=== PATIENT | female | born 1960 | race Caucasian/White ===

== ENCOUNTER 2021-04-07 14:19 | Inpatient (IN) ==
[2021-04-07 15:37] LABS: Bacteria,Urine Few per hpf (None-Few); Bilirubin,Urine Negative (Negative); Blood,Urine Moderate (Negative); Clarity,Urine Clear (Clear); Color,Urine Light-Yellow (Yellow); Glucose,Urine (UA) 50 mg/dL (Normal); Ketones,Urine Negative (Negative); Leukocyte Esterase,Urine Moderate (Negative); Nitrite,Urine Negative (Negative); Protein,Urine 70 mg/dL (Neg-Trace); RBC,Urine 50-100 per hpf (0-3); Specific Gravity,Urine 1.019 (1.010-1.025); Squamous Epithelial Cell,Urine Few per hpf (None-Few); Urobilinogen,Urine Normal (Normal); WBC,Urine 30-50 per hpf (0-3)
[2021-04-07 16:09] LABS: Basophils # 0.1 K/mcL (0.0-0.2); Basophils % 0.4 %; Eosinophils # 0.3 K/mcL (0.0-0.6); Eosinophils % 1.8 %; Hematocrit 36.7 % (35.3-44.9); Hemoglobin 11.8 g/dL (11.5-15.4); Immature Granulocytes % 1.7 % (0-4); Lymphocytes # 2.1 K/mcL (0.6-4.6); Lymphocytes % 13.4 %; Mean Corpuscular HGB Conc 32.2 g/dL (31.6-35.5); Mean Corpuscular Hemoglobin 29.4 pg (28.0-33.3); Mean Corpuscular Volume 91.3 fL (83.0-100.0); Monocytes # 0.7 K/mcL (0.0-1.3); Monocytes % 4.6 %; Neutrophils # 12.1 K/mcL (1.6-8.9); Platelet Count 254 K/mcL (140-400); Red Blood Count 4.02 M/mcL (3.82-4.97); Red Cell Distribution Width 13.8 % (11.5-14.5); Segmented Neutrophils % 78.1 %; White Blood Count 15.6 K/mcL (4.3-11.1)
[2021-04-07 16:30] LABS: Albumin 3.2 g/dL (3.5-5.7); Albumin/Globulin Ratio 0.8 (1.1-2.2); Bilirubin,Direct 0.2 mg/dL (0.0-0.2); Bilirubin,Indirect 0.5 mg/dL (0.0-1.0); Bilirubin,Total 0.7 mg/dL (0.3-1.0); Calcium 8.8 mg/dL (8.6-10.3); Potassium 4.1 mEq/L (3.5-5.1); Total Protein 7.2 g/dL (6.4-8.9)
[2021-04-07] MEDS ORDERED: 0.9 % Sodium Chloride 1,000 ML IVC ONE (16:34)
[2021-04-07] MEDS ORDERED: Morphine Sulfate 2 MG/ML SYRINGE IVP ONE (18:44)
[2021-04-07] MEDS ORDERED: Ondansetron 4 MG/2 ML VIAL IVP ONE (18:44)
[2021-04-07] MEDS ORDERED: cefTRIAXone 1,000 MG in Water for inj. (sterile) 10 ML IVP ONE (18:48)
[2021-04-07] MEDS ORDERED: Naloxone 0.4 MG/ML INJ IVP PRN (20:22)
[2021-04-07] MEDS ORDERED: Ondansetron 4 MG/2 ML VIAL IVP PRN (20:22)
[2021-04-07] MEDS ORDERED: *HR* OxyCODONE Immed Rel 5 MG TABLET PO PRN (20:22)
[2021-04-07] MEDS ORDERED: Melatonin 3 MG TABLET PO PRN (20:22)
[2021-04-07] MEDS ORDERED: Acetaminophen 325 MG TABLET PO PRN (20:22)
[2021-04-07] MEDS: Gabapentin 400 MG CAPSULE PO SCH (22:02)
[2021-04-07] MEDS: carvediloL 25 MG TABLET PO SCH (22:02)
[2021-04-07] MEDS: Ringers Solution, Lactated 1,000 ML IVC SCH (22:04)
[2021-04-08] MEDS: *HR* HYDROcodone/Acet 5/325 mg TABLET PO PRN ×2 (01:30→08:32)
[2021-04-08 04:58] LABS: INR 1.3
[2021-04-08 04:59] LABS: Basophils # 0.1 K/mcL (0.0-0.2); Basophils % 0.4 %; Eosinophils # 0.2 K/mcL (0.0-0.6); Eosinophils % 1.5 %; Hematocrit 33.2 % (35.3-44.9); Hemoglobin 10.4 g/dL (11.5-15.4); Immature Granulocytes % 1.4 % (0-4); Lymphocytes # 1.8 K/mcL (0.6-4.6); Lymphocytes % 11.6 %; Mean Corpuscular HGB Conc 31.3 g/dL (31.6-35.5); Mean Corpuscular Hemoglobin 28.8 pg (28.0-33.3); Mean Platelet Volume 9.2 fL (9.4-12.4); Monocytes # 0.7 K/mcL (0.0-1.3); Monocytes % 4.2 %; Neutrophils # 12.8 K/mcL (1.6-8.9); Platelet Count 247 K/mcL (140-400); Red Blood Count 3.61 M/mcL (3.82-4.97); Red Cell Distribution Width 13.8 % (11.5-14.5); Segmented Neutrophils % 80.9 %; White Blood Count 15.8 K/mcL (4.3-11.1)
[2021-04-08 05:04] LABS: Magnesium 1.2 mg/dL (1.6-2.6); Phosphorous 2.7 mg/dL (2.7-4.5); Potassium 3.9 mEq/L (3.5-5.1)
[2021-04-08] MEDS: *HR* Heparin 5,000 UNIT/ML VIAL SQ SCH ×2 (06:11→21:15)
[2021-04-08] MEDS: Ringers Solution, Lactated 1,000 ML IVC SCH (06:12)
[2021-04-08] MEDS ORDERED: Morphine Sulfate 2 MG/ML SYRINGE IVP PRN (06:47)
[2021-04-08] MEDS ORDERED: Ondansetron 4 MG/2 ML VIAL IVP PRN (06:47)
[2021-04-08] MEDS: Gabapentin 400 MG CAPSULE PO SCH ×2 (08:19→21:06)
[2021-04-08] MEDS: carvediloL 25 MG TABLET PO SCH (08:19)
[2021-04-08] MEDS: *HR* Insulin Regular U-500 500 UNIT/ML SUBQ SCH ×3 (08:20→16:23)
[2021-04-08] MEDS ORDERED: cefTRIAXone 1,000 MG in Water for inj. (sterile) 10 ML IVP SCH (09:00)
[2021-04-08] MEDS ORDERED: D5% in Water 1,000 ML IVC PRN (17:42)
[2021-04-08] MEDS ORDERED: Dextrose Gel 15 GM/37.5 ML TUBE PO PRN ×2 (17:42)
[2021-04-08] MEDS ORDERED: *HR* Dextrose 50 % in Water (Vial) 50 ML VIAL IVP PRN (17:42)
[2021-04-08] MEDS ORDERED: Insulin LISPRO 300 UNITS/3 ML VIAL SUBQ SCH ×2 (17:45→18:00)
[2021-04-08] MEDS ORDERED: Insulin DETEMIR 100 UNIT/ML X5UNITS SUBQ SCH (21:00)
[2021-04-09] MEDS: *HR* HYDROcodone/Acet 5/325 mg TABLET PO PRN ×3 (00:04→21:45)
[2021-04-09] MEDS ORDERED: *HR* FentaNYL (PF) 100 MCG/2 ML VIAL ONE (05:45)
[2021-04-09] MEDS ORDERED: *HR* Propofol 200 MG/20 ML VIAL IVP ONE (05:46)
[2021-04-09] MEDS ORDERED: Ondansetron 4 MG/2 ML VIAL ONE (05:46)
[2021-04-09] MEDS ORDERED: Lidocaine -MPF 2% 2 ML VIAL ONE (05:46)
[2021-04-09] MEDS ORDERED: *HR* Rocuronium Bromide 50 MG/5 ML VIAL ONE (05:46)
[2021-04-09] MEDS ORDERED: *HR* Succinylcholine 200 MG/10 ML VIAL IVP ONE (05:46)
[2021-04-09] MEDS ORDERED: Lidocaine HCL 4 ML Topical Solution (Laryng-O-Jet Kit Sterile Pak) TP ONE (05:50)
[2021-04-09] MEDS ORDERED: Isovue-300 50ML VIAL ONE (06:02)
[2021-04-09 06:14] LABS: Hematocrit 32.9 % (35.3-44.9); Hemoglobin 9.9 g/dL (11.5-15.4); Mean Corpuscular HGB Conc 30.1 g/dL (31.6-35.5); Mean Corpuscular Hemoglobin 28.2 pg (28.0-33.3); Mean Corpuscular Volume 93.7 fL (83.0-100.0); Platelet Count 238 K/mcL (140-400); Red Blood Count 3.51 M/mcL (3.82-4.97); Red Cell Distribution Width 13.8 % (11.5-14.5)
[2021-04-09 06:38] LABS: Potassium 3.8 mEq/L (3.5-5.1)
[2021-04-09] MEDS ORDERED: Naloxone 0.4 MG/ML INJ IVP PRN (07:41)
[2021-04-09] MEDS ORDERED: Melatonin 3 MG TABLET PO PRN (07:41)
[2021-04-09] MEDS ORDERED: *HR* OxyCODONE Immed Rel 5 MG TABLET PO PRN (07:41)
[2021-04-09] MEDS ORDERED: D5% in Water 1,000 ML IVC PRN (07:41)
[2021-04-09] MEDS ORDERED: Ondansetron 4 MG/2 ML VIAL IVP PRN (07:41)
[2021-04-09] MEDS ORDERED: Dextrose Gel 15 GM/37.5 ML TUBE PO PRN ×2 (07:41)
[2021-04-09] MEDS ORDERED: Acetaminophen 325 MG TABLET PO PRN (07:41)
[2021-04-09] MEDS ORDERED: *HR* Dextrose 50 % in Water (Vial) 50 ML VIAL IVP PRN (07:41)
[2021-04-09] MEDS: cefTRIAXone 1,000 MG in Water for inj. (sterile) 10 ML IVP SCH (08:35)
[2021-04-09] MEDS: carvediloL 25 MG TABLET PO SCH (08:35)
[2021-04-09] MEDS: Gabapentin 400 MG CAPSULE PO SCH ×2 (08:35→21:45)
[2021-04-09] MEDS: Insulin LISPRO 300 UNITS/3 ML VIAL SUBQ SCH ×2 (11:53→16:42)
[2021-04-09] MEDS: *HR* Heparin 5,000 UNIT/ML VIAL SQ SCH ×2 (16:41→21:46)
[2021-04-09] MEDS ORDERED: Insulin DETEMIR 100 UNIT/ML X5UNITS SUBQ SCH (21:00)
[2021-04-10 07:52] VITALS: BP 165/77; PULSE 80; TEMP 98; O2SAT 94
[2021-04-10] MEDS: cefTRIAXone 1,000 MG in Water for inj. (sterile) 10 ML IVP SCH (07:57)
[2021-04-10] MEDS: Gabapentin 400 MG CAPSULE PO SCH (07:58)
[2021-04-10] MEDS: *HR* Heparin 5,000 UNIT/ML VIAL SQ SCH (07:58)
[2021-04-10] MEDS: Insulin LISPRO 300 UNITS/3 ML VIAL SUBQ SCH ×2 (07:59→11:58)
[2021-04-10] MEDS: carvediloL 25 MG TABLET PO SCH (07:59)
[2021-04-10] MEDS: *HR* HYDROcodone/Acet 5/325 mg TABLET PO PRN (10:07)
== END 2021-04-10 14:01 | disposition home or self-care (01) | DRG 463 ==
LOC: 3ANU 14:19 → EMEROOARM 14:19 → SUATTDRO 19:20 → 3ANU 20:07
PROVIDERS: ADMIT Internal Medicine; ATTEND Internal Medicine

== ENCOUNTER 2021-06-06 15:35 | Inpatient (IN) ==
[2021-06-06] MEDS ORDERED: 0.9 % Sodium Chloride 1,000 ML IVC ONE (17:11)
[2021-06-06] MEDS ORDERED: Ondansetron 4 MG/2 ML VIAL IVP ONE (17:11)
[2021-06-06 17:25] LABS: Bacteria,Urine Few per hpf (None-Few); Bilirubin,Urine Negative (Negative); Blood,Urine Large (Negative); Clarity,Urine Ex.Turbid (Clear); Color,Urine Dark-Yellow (Yellow); Glucose,Urine (UA) 70 mg/dL (Normal); Ketones,Urine Negative (Negative); Leukocyte Esterase,Urine Large (Negative); Mucus,Urine Few per lpf (None-Few); Nitrite,Urine Negative (Negative); Protein,Urine >=300 mg/dL (Neg-Trace); RBC,Urine TNTC per hpf (0-3); Specific Gravity,Urine 1.017 (1.010-1.025); Urobilinogen,Urine Normal (Normal); WBC,Urine TNTC per hpf (0-3)
[2021-06-06 17:28] LABS: Basophils # 0.1 K/mcL (0.0-0.2); Basophils % 0.4 %; Eosinophils # 0.2 K/mcL (0.0-0.6); Eosinophils % 1.3 %; Hemoglobin 12.7 g/dL (11.5-15.4); Immature Granulocytes % 0.6 % (0-4); Lymphocytes # 3.4 K/mcL (0.6-4.6); Lymphocytes % 23.6 %; Mean Corpuscular Hemoglobin 28.5 pg (28.0-33.3); Mean Corpuscular Volume 92.1 fL (83.0-100.0); Monocytes # 1.2 K/mcL (0.0-1.3); Monocytes % 8.6 %; Neutrophils # 9.3 K/mcL (1.6-8.9); Platelet Count 308 K/mcL (140-400); Red Blood Count 4.45 M/mcL (3.82-4.97); Red Cell Distribution Width 15.5 % (11.5-14.5); Segmented Neutrophils % 65.5 %; White Blood Count 14.2 K/mcL (4.3-11.1)
[2021-06-06 17:44] LABS: Bilirubin,Direct 0.2 mg/dL (0.0-0.2); Bilirubin,Indirect 1.1 mg/dL (0.0-1.0); Bilirubin,Total 1.3 mg/dL (0.3-1.0); Calcium 9.8 mg/dL (8.6-10.3); Globulin 4.1 g/dL (2.4-3.5); Potassium 3.6 mEq/L (3.5-5.1); Total Protein 8.1 g/dL (6.4-8.9)
[2021-06-06] MEDS ORDERED: cefTRIAXone 2,000 MG in Water for inj. (sterile) 10 ML IVP ONE (18:00)
[2021-06-06] MEDS ORDERED: 0.9 % Sodium Chloride 500 ML IVC ONE (18:06)
[2021-06-06] MEDS ORDERED: 0.9 % Sodium Chloride 1,000 ML IVC SCH (20:30)
[2021-06-06] MEDS ORDERED: Naloxone 0.4 MG/ML INJ IVP PRN (21:34)
[2021-06-06] MEDS ORDERED: Ondansetron ODT 4 MG TAB.RAPDIS SL PRN (21:34)
[2021-06-06] MEDS ORDERED: Dextrose Gel 15 GM/37.5 ML TUBE PO PRN ×2 (22:04)
[2021-06-06] MEDS ORDERED: D5% in Water 1,000 ML IVC PRN (22:04)
[2021-06-06] MEDS ORDERED: *HR* Dextrose 50 % in Water (Vial) 50 ML VIAL IVP PRN (22:04)
[2021-06-07] MEDS: Ringers Solution, Lactated 1,000 ML IVC SCH ×2 (01:06→08:07)
[2021-06-07] MEDS: Insulin LISPRO 300 UNITS/3 ML VIAL SUBQ SCH ×4 (02:34→16:41)
[2021-06-07 04:38] LABS: Basophils % 0.4 %; Eosinophils # 0.2 K/mcL (0.0-0.6); Eosinophils % 3.3 %; Hematocrit 31.2 % (35.3-44.9); Immature Granulocytes % 0.3 % (0-4); Lymphocytes # 1.8 K/mcL (0.6-4.6); Lymphocytes % 25.1 %; Mean Corpuscular HGB Conc 32.1 g/dL (31.6-35.5); Mean Corpuscular Hemoglobin 28.9 pg (28.0-33.3); Mean Corpuscular Volume 90.2 fL (83.0-100.0); Mean Platelet Volume 9.8 fL (9.4-12.4); Monocytes # 0.7 K/mcL (0.0-1.3); Neutrophils # 4.5 K/mcL (1.6-8.9); Platelet Count 180 K/mcL (140-400); Red Blood Count 3.46 M/mcL (3.82-4.97); Red Cell Distribution Width 15.4 % (11.5-14.5); Segmented Neutrophils % 60.9 %; White Blood Count 7.3 K/mcL (4.3-11.1)
[2021-06-07 04:57] LABS: Calcium 8.5 mg/dL (8.6-10.3); Potassium 3.5 mEq/L (3.5-5.1)
[2021-06-07] MEDS: cefTRIAXone 1,000 MG in Water for inj. (sterile) 10 ML IVP SCH (08:07)
[2021-06-07] MEDS: Gabapentin 400 MG CAPSULE PO SCH (21:02)
[2021-06-07] MEDS ORDERED: Insulin LISPRO 300 UNITS/3 ML VIAL SUBQ SCH (21:15)
[2021-06-08 07:41] LABS: Basophils # 0.1 K/mcL (0.0-0.2); Basophils % 0.7 %; Eosinophils # 0.4 K/mcL (0.0-0.6); Eosinophils % 5.1 %; Hematocrit 32.9 % (35.3-44.9); Hemoglobin 10.3 g/dL (11.5-15.4); Immature Granulocytes % 0.4 % (0-4); Lymphocytes # 2.3 K/mcL (0.6-4.6); Lymphocytes % 31.9 %; Mean Corpuscular HGB Conc 31.3 g/dL (31.6-35.5); Mean Corpuscular Hemoglobin 28.5 pg (28.0-33.3); Mean Corpuscular Volume 91.1 fL (83.0-100.0); Mean Platelet Volume 10.3 fL (9.4-12.4); Monocytes # 0.6 K/mcL (0.0-1.3); Monocytes % 7.8 %; Neutrophils # 3.9 K/mcL (1.6-8.9); Platelet Count 210 K/mcL (140-400); Red Blood Count 3.61 M/mcL (3.82-4.97); Red Cell Distribution Width 15.1 % (11.5-14.5); Segmented Neutrophils % 54.1 %; White Blood Count 7.2 K/mcL (4.3-11.1)
[2021-06-08] MEDS: Gabapentin 400 MG CAPSULE PO SCH (07:54)
[2021-06-08] MEDS: cefTRIAXone 1,000 MG in Water for inj. (sterile) 10 ML IVP SCH (07:54)
[2021-06-08] MEDS: Insulin LISPRO 300 UNITS/3 ML VIAL SUBQ SCH ×2 (07:55→12:00)
[2021-06-08 08:02] LABS: Potassium 3.7 mEq/L (3.5-5.1)
[2021-06-08 11:26] VITALS: BP 109/71; PULSE 83; TEMP 97.8; O2SAT 96
== END 2021-06-08 13:06 | disposition home or self-care (01) | DRG 720 ==
LOC: EMEROOARM 15:35 → 2ANU 15:35 → SUATTDRO 23:18 → OBSVTOIN 23:18 → 2ANU 06-07 00:39
PROVIDERS: ADMIT Student in an Organized Health Care Education/Training Program; ATTEND Hospitalist

== ENCOUNTER 2021-12-12 22:55 | Observation (INO) ==
[2021-12-13] MEDS ORDERED: Melatonin 3 MG TABLET PO PRN ×2 (02:12→11:18)
[2021-12-13] MEDS ORDERED: Naloxone 0.4 MG/ML INJ IVP PRN ×2 (02:12→11:18)
[2021-12-13] MEDS ORDERED: Acetaminophen 325 MG TABLET PO PRN (02:12)
[2021-12-13] MEDS ORDERED: 0.9 % Sodium Chloride 1,000 ML IVC SCH (02:15)
[2021-12-13] MEDS ORDERED: D5% in Water 1,000 ML IVC PRN ×3 (02:18→16:16)
[2021-12-13] MEDS ORDERED: *HR* Dextrose 50 % in Water (Syg) 50 ML SYRINGE IVP PRN (02:18)
[2021-12-13] MEDS ORDERED: Dextrose 4 GM Chewable Tablets PO PRN ×4 (02:18→11:18)
[2021-12-13] MEDS ORDERED: Saliva Stimulant 44.3ml BOTTLE PO PRN ×2 (02:21→11:18)
[2021-12-13] MEDS ORDERED: *HR* OxyCODONE Immed Rel 5 MG TABLET PO PRN ×2 (02:51→11:18)
[2021-12-13] MEDS ORDERED: Morphine Sulfate 2 MG/ML SYRINGE IVP ONE (02:55)
[2021-12-13 03:11] LABS: Hematocrit 35.8 % (35.3-44.9); Hemoglobin 11.6 g/dL (11.5-15.4); Mean Corpuscular HGB Conc 32.4 g/dL (31.6-35.5); Mean Corpuscular Volume 89.5 fL (83.0-100.0); Mean Platelet Volume 9.9 fL (9.4-12.4); Platelet Count 226 K/mcL (140-400); Red Cell Distribution Width 14.6 % (11.5-14.5); White Blood Count 8.8 K/mcL (4.3-11.1)
[2021-12-13 03:21] LABS: INR 1.1; Prothrombin Time 12.7 Seconds (9.4-12.1)
[2021-12-13 03:24] LABS: Activated Partial Thrombo Time 27.8 Seconds (26.0-36.0)
[2021-12-13 03:33] LABS: Calcium 8.3 mg/dL (8.6-10.3); Magnesium 2.1 mg/dL (1.6-2.6); Potassium 3.3 mEq/L (3.5-5.1)
[2021-12-13] MEDS ORDERED: *HR* FentaNYL (PF) 100 MCG/2 ML VIAL IVP PRN (08:47)
[2021-12-13] MEDS ORDERED: Lactobacillus 1 EACH CAP.SPRINK PO SCH (09:00)
[2021-12-13] MEDS ORDERED: cefTRIAXone 2,000 MG in 0.9 % Sodium Chloride Mini Bag 100 ML IVPB SCH (09:00)
[2021-12-13] MEDS ORDERED: Multivit/Ca/Min/Fe/FA 1 TAB TABLET PO SCH (09:00)
[2021-12-13] MEDS ORDERED: Chlorhexidine Rinse 15 ML MOUTHWASH MM SCH (09:00)
[2021-12-13] MEDS ORDERED: *HR* FentaNYL (PF) 100 MCG/2 ML VIAL ONE (09:41)
[2021-12-13] MEDS ORDERED: *HR* Propofol 200 MG/20 ML VIAL IVP ONE (09:41)
[2021-12-13] MEDS: Insulin LISPRO 300 UNITS/3 ML VIAL SUBQ SCH (17:04)
[2021-12-13] MEDS: *HR* Heparin 5,000 UNIT/ML VIAL SQ SCH (17:04)
[2021-12-13] MEDS ORDERED: Gabapentin 400 MG CAPSULE PO PRN (17:19)
[2021-12-13] MEDS ORDERED: *HR* Heparin 5,000 UNIT/ML VIAL SQ SCH (18:00)
[2021-12-13] MEDS: Chlorhexidine Rinse 15 ML MOUTHWASH MM SCH (19:46)
[2021-12-13] MEDS: Lactobacillus 1 EACH CAP.SPRINK PO SCH (19:46)
[2021-12-13] MEDS ORDERED: Insulin LISPRO 300 UNITS/3 ML VIAL SUBQ SCH (21:00)
[2021-12-13] MEDS: Acetaminophen 325 MG TABLET PO PRN (23:15)
[2021-12-14] MEDS: *HR* Heparin 5,000 UNIT/ML VIAL SQ SCH (04:38)
[2021-12-14 08:00] LABS: Basophils % 0.2 %; Eosinophils % 0.5 %; Hematocrit 34.3 % (35.3-44.9); Immature Granulocytes % 1.4 % (0-4); Lymphocytes # 1.3 K/mcL (0.6-4.6); Lymphocytes % 15.3 %; Mean Corpuscular HGB Conc 32.1 g/dL (31.6-35.5); Mean Corpuscular Hemoglobin 28.5 pg (28.0-33.3); Mean Corpuscular Volume 88.9 fL (83.0-100.0); Mean Platelet Volume 9.4 fL (9.4-12.4); Monocytes # 0.5 K/mcL (0.0-1.3); Monocytes % 5.5 %; Neutrophils # 6.4 K/mcL (1.6-8.9); Platelet Count 207 K/mcL (140-400); Red Blood Count 3.86 M/mcL (3.82-4.97); Red Cell Distribution Width 14.6 % (11.5-14.5); Segmented Neutrophils % 77.1 %; White Blood Count 8.3 K/mcL (4.3-11.1)
[2021-12-14] MEDS ORDERED: *HR* Insulin Regular U-500 500 UNIT/ML SUBQ SCH ×2 (08:00→09:15)
[2021-12-14 08:48] LABS: Calcium 8.5 mg/dL (8.6-10.3); Potassium 4.6 mEq/L (3.5-5.1)
[2021-12-14] MEDS ORDERED: cefTRIAXone 2,000 MG in 0.9 % Sodium Chloride Mini Bag 100 ML IVPB SCH (09:00)
[2021-12-14] MEDS ORDERED: Multivit/Ca/Min/Fe/FA 1 TAB TABLET PO SCH (09:00)
[2021-12-14] MEDS: Lactobacillus 1 EACH CAP.SPRINK PO SCH (09:21)
[2021-12-14] MEDS: Chlorhexidine Rinse 15 ML MOUTHWASH MM SCH (09:21)
[2021-12-14] MEDS: Insulin LISPRO 300 UNITS/3 ML VIAL SUBQ SCH (09:22)
[2021-12-14] MEDS: Acetaminophen 325 MG TABLET PO PRN (10:20)
[2021-12-14 11:48] VITALS: BP 122/90; PULSE 60; TEMP 98; O2SAT 97
== END 2021-12-14 12:30 | disposition home or self-care (01) ==
LOC: 3ANU
PROVIDERS: ADMIT Internal Medicine; ATTEND Internal Medicine

== ENCOUNTER 2022-03-28 04:27 | Inpatient (IN) ==
[2022-03-28] MEDS ORDERED: Ondansetron 4 MG/2 ML VIAL IVP PRN (08:22)
[2022-03-28] MEDS ORDERED: Naloxone 0.4 MG/ML INJ IVP PRN (08:22)
[2022-03-28] MEDS ORDERED: Acetaminophen 325 MG TABLET PO PRN (08:22)
[2022-03-28 09:07] LABS: Basophils % 0.4 %; Eosinophils # 0.1 K/mcL (0.0-0.6); Eosinophils % 1.2 %; Hematocrit 34.1 % (35.3-44.9); Hemoglobin 10.6 g/dL (11.5-15.4); Immature Granulocytes % 0.4 % (0-4); Lymphocytes # 1.4 K/mcL (0.6-4.6); Lymphocytes % 14.2 %; Mean Corpuscular HGB Conc 31.1 g/dL (31.6-35.5); Mean Corpuscular Hemoglobin 29.1 pg (28.0-33.3); Mean Corpuscular Volume 93.7 fL (83.0-100.0); Mean Platelet Volume 9.4 fL (9.4-12.4); Monocytes # 0.6 K/mcL (0.0-1.3); Monocytes % 6.5 %; Neutrophils # 7.6 K/mcL (1.6-8.9); Platelet Count 356 K/mcL (140-400); Red Blood Count 3.64 M/mcL (3.82-4.97); Red Cell Distribution Width 14.6 % (11.5-14.5); Segmented Neutrophils % 77.3 %; White Blood Count 9.8 K/mcL (4.3-11.1)
[2022-03-28 09:14] LABS: INR 1.4; Prothrombin Time 15.7 Seconds (9.4-12.1)
[2022-03-28 09:17] LABS: Activated Partial Thrombo Time 32.8 Seconds (26.0-36.0)
[2022-03-28 09:25] LABS: Albumin 3.1 g/dL (3.5-5.7); Albumin/Globulin Ratio 0.7 (1.1-2.2); Bilirubin,Total 0.5 mg/dL (0.3-1.0); Calcium 8.8 mg/dL (8.6-10.3); Chol/HDL Ratio 4.8 (0-4.9); Globulin 4.7 g/dL (2.4-3.5); Potassium 4.6 mEq/L (3.5-5.1); Total Protein 7.8 g/dL (6.4-8.9)
[2022-03-28] MEDS ORDERED: Water for inj. (sterile) 0 ML ONE (09:49)
[2022-03-28] MEDS: 0.9 % Sodium Chloride 1,000 ML IVC SCH ×2 (09:59→20:15)
[2022-03-28] MEDS: cefTRIAXone 1,000 MG in Water for inj. (sterile) 10 ML IVP SCH (09:59)
[2022-03-28] MEDS: *HR* OxyCODONE Immed Rel 5 MG TABLET PO PRN (11:27)
[2022-03-28] MEDS ORDERED: *HR* Dextrose 50 % in Water (Syg) 50 ML SYRINGE IVP PRN (13:04)
[2022-03-28] MEDS ORDERED: Dextrose Gel 15 GM/37.5 ML TUBE PO PRN ×2 (13:04)
[2022-03-28] MEDS ORDERED: D5% in Water 1,000 ML IVC PRN (13:04)
[2022-03-28] MEDS: Insulin LISPRO 300 UNITS/3 ML VIAL SUBQ SCH ×2 (16:53→20:09)
[2022-03-28] MEDS ORDERED: Warfarin perPT PO PRN (18:00)
[2022-03-28] MEDS ORDERED: *HR* Warfarin 0.5 MG TABLET PO ONE (18:10)
[2022-03-28] MEDS: *HR* Heparin 5,000 UNIT/ML VIAL SQ SCH (22:49)
[2022-03-29] MEDS: *HR* Heparin 5,000 UNIT/ML VIAL SQ SCH ×4 (01:04→21:57)
[2022-03-29 03:34] LABS: INR 1.4; Prothrombin Time 15.2 Seconds (9.4-12.1)
[2022-03-29] MEDS: Insulin LISPRO 300 UNITS/3 ML VIAL SUBQ SCH ×4 (08:23→21:57)
[2022-03-29 08:26] LABS: Basophils % 0.4 %; Eosinophils # 0.1 K/mcL (0.0-0.6); Eosinophils % 1.6 %; Hematocrit 31.1 % (35.3-44.9); Hemoglobin 9.6 g/dL (11.5-15.4); Immature Granulocytes % 0.4 % (0-4); Lymphocytes # 1.2 K/mcL (0.6-4.6); Mean Corpuscular HGB Conc 30.9 g/dL (31.6-35.5); Mean Corpuscular Hemoglobin 29.2 pg (28.0-33.3); Mean Corpuscular Volume 94.5 fL (83.0-100.0); Mean Platelet Volume 9.4 fL (9.4-12.4); Monocytes # 0.7 K/mcL (0.0-1.3); Monocytes % 8.9 %; Neutrophils # 5.9 K/mcL (1.6-8.9); Platelet Count 295 K/mcL (140-400); Red Blood Count 3.29 M/mcL (3.82-4.97); Red Cell Distribution Width 14.6 % (11.5-14.5); Segmented Neutrophils % 73.7 %; White Blood Count 7.9 K/mcL (4.3-11.1)
[2022-03-29] MEDS: cefTRIAXone 1,000 MG in Water for inj. (sterile) 10 ML IVP SCH (08:27)
[2022-03-29] MEDS: *HR* OxyCODONE Immed Rel 5 MG TABLET PO PRN ×3 (08:37→17:47)
[2022-03-29 08:49] LABS: Calcium 8.6 mg/dL (8.6-10.3); Potassium 4.5 mEq/L (3.5-5.1)
[2022-03-29] MEDS ORDERED: *HR* HYDROmorphone PF 0.5 MG/0.5 ML SYRINGE IVP PRN (08:52)
[2022-03-29] MEDS ORDERED: *HR* FentaNYL (PF) 100 MCG/2 ML VIAL IVP PRN (08:52)
[2022-03-29] MEDS ORDERED: *HR* Propofol 200 MG/20 ML VIAL IVP ONE (10:31)
[2022-03-29] MEDS ORDERED: *HR* FentaNYL (PF) 100 MCG/2 ML VIAL ONE (10:31)
[2022-03-29] MEDS ORDERED: *HR* Midazolam HCl 2 MG/2 ML VIAL ONE (10:31)
[2022-03-29] MEDS ORDERED: Iopamidol - 300 50 ML VIAL ONE (11:40)
[2022-03-29] MEDS ORDERED: Ondansetron 4 MG/2 ML VIAL ONE (12:13)
[2022-03-29] MEDS ORDERED: Morphine Sulfate 2 MG/ML SYRINGE IVP ONE (15:13)
[2022-03-29] MEDS ORDERED: hydrOXYzine pamoate 25 MG CAPSULE PO PRN (15:37)
[2022-03-29] MEDS ORDERED: Ondansetron ODT 4 MG TAB.RAPDIS PO PRN (15:38)
[2022-03-29] MEDS: Gabapentin 300 MG CAPSULE PO SCH ×2 (15:43→21:57)
[2022-03-29] MEDS: carvediloL 25 MG TABLET PO SCH (16:05)
[2022-03-29] MEDS ORDERED: *HR* Warfarin 0.5 MG TABLET PO ONE (18:00)
[2022-03-30 03:08] LABS: Hematocrit 31.3 % (35.3-44.9); Hemoglobin 9.7 g/dL (11.5-15.4); Mean Corpuscular Hemoglobin 28.9 pg (28.0-33.3); Mean Corpuscular Volume 93.2 fL (83.0-100.0); Mean Platelet Volume 9.4 fL (9.4-12.4); Platelet Count 312 K/mcL (140-400); Red Blood Count 3.36 M/mcL (3.82-4.97); Red Cell Distribution Width 14.5 % (11.5-14.5); White Blood Count 8.7 K/mcL (4.3-11.1)
[2022-03-30 03:26] LABS: Calcium 8.7 mg/dL (8.6-10.3); Potassium 4.3 mEq/L (3.5-5.1)
[2022-03-30 03:29] LABS: Estimated Average Glucose 114 mg/dl; Hemoglobin A1C 5.6 %
[2022-03-30 03:30] LABS: INR 1.3; Prothrombin Time 14.3 Seconds (9.4-12.1)
[2022-03-30] MEDS: *HR* Heparin 5,000 UNIT/ML VIAL SQ SCH (05:02)
[2022-03-30] MEDS ORDERED: Warfarin perPT PO PRN (08:00)
[2022-03-30] MEDS ORDERED: Dextrose Gel 15 GM/37.5 ML TUBE PO PRN ×2 (08:00)
[2022-03-30] MEDS ORDERED: *HR* Dextrose 50 % in Water (Syg) 50 ML SYRINGE IVP PRN (08:00)
[2022-03-30] MEDS ORDERED: Acetaminophen 325 MG TABLET PO PRN (08:00)
[2022-03-30] MEDS ORDERED: Naloxone 0.4 MG/ML INJ IVP PRN (08:00)
[2022-03-30] MEDS ORDERED: D5% in Water 1,000 ML IVC PRN (08:00)
[2022-03-30] MEDS ORDERED: *HR* Warfarin 1 MG TABLET PO SCH (08:00)
[2022-03-30] MEDS: cefTRIAXone 1,000 MG in 0.9 % Sodium Chloride 10 ML IVP SCH (08:56)
[2022-03-30] MEDS: carvediloL 25 MG TABLET PO SCH ×2 (08:57→15:17)
[2022-03-30] MEDS: Gabapentin 300 MG CAPSULE PO SCH ×3 (08:57→21:13)
[2022-03-30] MEDS: Insulin LISPRO 300 UNITS/3 ML VIAL SUBQ SCH ×3 (11:54→21:02)
[2022-03-30] MEDS ORDERED: *HR* Heparin 5,000 UNIT/ML VIAL SQ SCH (14:00)
[2022-03-30] MEDS: *HR* OxyCODONE Immed Rel 5 MG TABLET PO PRN (16:48)
[2022-03-30] MEDS ORDERED: *HR* Warfarin 0.5 MG TABLET PO ONE (18:00)
[2022-03-31 05:33] LABS: Hemoglobin 9.2 g/dL (11.5-15.4); Mean Corpuscular HGB Conc 30.7 g/dL (31.6-35.5); Mean Corpuscular Hemoglobin 29.1 pg (28.0-33.3); Mean Corpuscular Volume 94.9 fL (83.0-100.0); Mean Platelet Volume 9.5 fL (9.4-12.4); Platelet Count 288 K/mcL (140-400); Red Blood Count 3.16 M/mcL (3.82-4.97); Red Cell Distribution Width 14.6 % (11.5-14.5); White Blood Count 7.6 K/mcL (4.3-11.1)
[2022-03-31 05:47] LABS: INR 1.4; Prothrombin Time 15.1 Seconds (9.4-12.1)
[2022-03-31 05:53] LABS: Calcium 8.4 mg/dL (8.6-10.3)
[2022-03-31] MEDS: Insulin LISPRO 300 UNITS/3 ML VIAL SUBQ SCH ×4 (09:49→21:12)
[2022-03-31] MEDS: Gabapentin 300 MG CAPSULE PO SCH ×3 (09:50→21:19)
[2022-03-31] MEDS: cefTRIAXone 1,000 MG in 0.9 % Sodium Chloride 10 ML IVP SCH (09:50)
[2022-03-31] MEDS: carvediloL 25 MG TABLET PO SCH ×2 (09:54→17:12)
[2022-03-31] MEDS: *HR* OxyCODONE Immed Rel 5 MG TABLET PO PRN (17:29)
[2022-03-31] MEDS ORDERED: *HR* Warfarin 0.5 MG TABLET PO ONE (18:00)
[2022-04-01 03:54] LABS: Hematocrit 31.1 % (35.3-44.9); Hemoglobin 9.5 g/dL (11.5-15.4); Mean Corpuscular HGB Conc 30.5 g/dL (31.6-35.5); Mean Corpuscular Hemoglobin 29.1 pg (28.0-33.3); Mean Corpuscular Volume 95.1 fL (83.0-100.0); Mean Platelet Volume 9.6 fL (9.4-12.4); Platelet Count 288 K/mcL (140-400); Red Blood Count 3.27 M/mcL (3.82-4.97); Red Cell Distribution Width 14.6 % (11.5-14.5); White Blood Count 7.6 K/mcL (4.3-11.1)
[2022-04-01 03:57] LABS: INR 1.5; Prothrombin Time 16.2 Seconds (9.4-12.1)
[2022-04-01] MEDS: Insulin LISPRO 300 UNITS/3 ML VIAL SUBQ SCH ×4 (09:03→21:37)
[2022-04-01] MEDS: cefTRIAXone 1,000 MG in 0.9 % Sodium Chloride 10 ML IVP SCH (09:14)
[2022-04-01] MEDS: *HR* Enoxaparin 80 MG/0.8 ML SYRINGE SQ SCH ×2 (09:14→22:14)
[2022-04-01] MEDS: Gabapentin 300 MG CAPSULE PO SCH ×3 (09:14→22:15)
[2022-04-01] MEDS: carvediloL 25 MG TABLET PO SCH ×2 (09:14→17:40)
[2022-04-01 10:53] LABS: Calcium 8.5 mg/dL (8.6-10.3); Potassium 3.7 mEq/L (3.5-5.1)
[2022-04-01] MEDS: Ondansetron 4 MG/2 ML VIAL IVP PRN (12:35)
[2022-04-01 13:34] LABS: Bacteria,Urine Few per hpf (None-Few); Bilirubin,Urine Negative (Negative); Blood,Urine Large (Negative); Budding Yeast,Urine Moderate per hpf (None Seen); Clarity,Urine Ex.Turbid (Clear); Color,Urine Yellow (Yellow); Glucose,Urine (UA) Normal (Normal); Ketones,Urine Trace mg/dL (Negative); Leukocyte Esterase,Urine Large (Negative); Mucus,Urine Few per lpf (None-Few); Nitrite,Urine Negative (Negative); Protein,Urine >=300 mg/dL (Neg-Trace); RBC,Urine TNTC per hpf (0-3); Specific Gravity,Urine 1.015 (1.010-1.025); Squamous Epithelial Cell,Urine Moderate per hpf (None-Few); Urobilinogen,Urine Normal (Normal); WBC,Urine TNTC per hpf (0-3)
[2022-04-01] MEDS: *HR* OxyCODONE Immed Rel 5 MG TABLET PO PRN (17:40)
[2022-04-01] MEDS ORDERED: *HR* Warfarin 0.5 MG TABLET PO ONE (18:00)
[2022-04-01] MEDS ORDERED: *HR* Warfarin 1 MG TABLET PO ONE (18:00)
[2022-04-02 03:21] LABS: INR 1.6; Prothrombin Time 18.1 Seconds (9.4-12.1)
[2022-04-02] MEDS: Insulin LISPRO 300 UNITS/3 ML VIAL SUBQ SCH ×4 (08:28→21:06)
[2022-04-02] MEDS: cefTRIAXone 1,000 MG in 0.9 % Sodium Chloride 10 ML IVP SCH (08:53)
[2022-04-02] MEDS: *HR* Enoxaparin 80 MG/0.8 ML SYRINGE SQ SCH ×2 (08:54→20:51)
[2022-04-02] MEDS: carvediloL 25 MG TABLET PO SCH ×2 (08:54→16:53)
[2022-04-02] MEDS: Gabapentin 300 MG CAPSULE PO SCH ×3 (08:54→20:51)
[2022-04-02 09:58] LABS: Hematocrit 32.4 % (35.3-44.9); Hemoglobin 9.9 g/dL (11.5-15.4); Mean Corpuscular HGB Conc 30.6 g/dL (31.6-35.5); Mean Corpuscular Hemoglobin 28.9 pg (28.0-33.3); Mean Corpuscular Volume 94.5 fL (83.0-100.0); Mean Platelet Volume 9.4 fL (9.4-12.4); Platelet Count 275 K/mcL (140-400); Red Blood Count 3.43 M/mcL (3.82-4.97); Red Cell Distribution Width 14.3 % (11.5-14.5); White Blood Count 8.9 K/mcL (4.3-11.1)
[2022-04-02 10:35] LABS: Calcium 8.4 mg/dL (8.6-10.3); Potassium 3.4 mEq/L (3.5-5.1)
[2022-04-02] MEDS ORDERED: Fluconazole 200 MG/100 ML 200 MG/100 ML BAG IVPB ONE (11:59)
[2022-04-02] MEDS: *HR* OxyCODONE Immed Rel 5 MG TABLET PO PRN (12:40)
[2022-04-02] MEDS ORDERED: *HR* Warfarin 1 MG TABLET PO ONE (18:00)
[2022-04-02] MEDS ORDERED: *HR* Warfarin 0.5 MG TABLET PO ONE (18:00)
[2022-04-03] MEDS: *HR* OxyCODONE Immed Rel 5 MG TABLET PO PRN ×3 (04:12→21:22)
[2022-04-03 06:21] LABS: Hemoglobin 10.2 g/dL (11.5-15.4); Mean Corpuscular Hemoglobin 28.7 pg (28.0-33.3); Mean Corpuscular Volume 95.5 fL (83.0-100.0); Mean Platelet Volume 9.6 fL (9.4-12.4); Platelet Count 245 K/mcL (140-400); Red Blood Count 3.56 M/mcL (3.82-4.97); Red Cell Distribution Width 14.5 % (11.5-14.5); White Blood Count 8.8 K/mcL (4.3-11.1)
[2022-04-03 06:22] LABS: INR 1.6; Prothrombin Time 17.9 Seconds (9.4-12.1)
[2022-04-03 06:43] LABS: Calcium 8.2 mg/dL (8.6-10.3); Potassium 3.3 mEq/L (3.5-5.1)
[2022-04-03] MEDS: Insulin LISPRO 300 UNITS/3 ML VIAL SUBQ SCH ×4 (08:10→21:12)
[2022-04-03] MEDS: *HR* Enoxaparin 80 MG/0.8 ML SYRINGE SQ SCH ×2 (09:32→21:17)
[2022-04-03] MEDS: cefTRIAXone 1,000 MG in 0.9 % Sodium Chloride 10 ML IVP SCH (09:32)
[2022-04-03] MEDS: carvediloL 25 MG TABLET PO SCH ×2 (09:33→17:22)
[2022-04-03] MEDS: Gabapentin 300 MG CAPSULE PO SCH ×3 (09:33→21:17)
[2022-04-03] MEDS ORDERED: Fluconazole 100 MG TABLET PO SCH ×2 (10:15→11:15)
[2022-04-03] MEDS ORDERED: Fluconazole 40 MG/ML MLS PO SCH (11:00)
[2022-04-03] MEDS: Cefepime HCl 1,000 MG in 0.9 % Sodium Chloride 10 ML IVPB SCH (17:22)
[2022-04-03] MEDS ORDERED: *HR* Warfarin 1 MG TABLET PO ONE (18:00)
[2022-04-04 01:47] LABS: Hemoglobin 10.2 g/dL (11.5-15.4); Mean Corpuscular HGB Conc 30.9 g/dL (31.6-35.5); Mean Corpuscular Hemoglobin 29.1 pg (28.0-33.3); Mean Corpuscular Volume 94.3 fL (83.0-100.0); Mean Platelet Volume 9.7 fL (9.4-12.4); Platelet Count 222 K/mcL (140-400); Red Cell Distribution Width 14.6 % (11.5-14.5); White Blood Count 9.1 K/mcL (4.3-11.1)
[2022-04-04 01:50] LABS: INR 1.7; Prothrombin Time 18.9 Seconds (9.4-12.1)
[2022-04-04] MEDS: Cefepime HCl 1,000 MG in 0.9 % Sodium Chloride 10 ML IVPB SCH ×2 (05:37→17:36)
[2022-04-04] MEDS: Insulin LISPRO 300 UNITS/3 ML VIAL SUBQ SCH ×4 (10:05→20:06)
[2022-04-04] MEDS: *HR* Enoxaparin 80 MG/0.8 ML SYRINGE SQ SCH ×2 (10:06→20:09)
[2022-04-04] MEDS: Gabapentin 300 MG CAPSULE PO SCH ×3 (10:06→20:08)
[2022-04-04] MEDS: Fluconazole 100 MG TABLET PO SCH (10:06)
[2022-04-04] MEDS: carvediloL 25 MG TABLET PO SCH ×2 (10:06→16:11)
[2022-04-04] MEDS ORDERED: *HR* Warfarin 1 MG TABLET PO ONE (18:00)
[2022-04-04] MEDS: *HR* OxyCODONE Immed Rel 5 MG TABLET PO PRN (20:09)
[2022-04-05 02:58] LABS: INR 1.5; Prothrombin Time 16.5 Seconds (9.4-12.1)
[2022-04-05] MEDS: Cefepime HCl 1,000 MG in 0.9 % Sodium Chloride 10 ML IVPB SCH ×2 (05:03→17:16)
[2022-04-05] MEDS: Gabapentin 300 MG CAPSULE PO SCH ×3 (07:56→21:08)
[2022-04-05] MEDS: Fluconazole 100 MG TABLET PO SCH (07:56)
[2022-04-05] MEDS: carvediloL 25 MG TABLET PO SCH ×2 (07:56→16:11)
[2022-04-05] MEDS: *HR* Enoxaparin 80 MG/0.8 ML SYRINGE SQ SCH ×2 (07:56→21:08)
[2022-04-05] MEDS: Insulin LISPRO 300 UNITS/3 ML VIAL SUBQ SCH ×3 (08:04→17:15)
[2022-04-05] MEDS: *HR* OxyCODONE Immed Rel 5 MG TABLET PO PRN ×2 (08:13→21:12)
[2022-04-05] MEDS ORDERED: *HR* Warfarin 0.5 MG TABLET PO ONE (18:00)
[2022-04-05] MEDS ORDERED: *HR* Warfarin 3 MG TABLET PO ONE (18:00)
[2022-04-05] MEDS ORDERED: *HR* Warfarin 1 MG TABLET PO ONE (18:00)
[2022-04-06] MEDS: Cefepime HCl 1,000 MG in 0.9 % Sodium Chloride 10 ML IVPB SCH ×2 (05:48→17:01)
[2022-04-06] MEDS: Insulin LISPRO 300 UNITS/3 ML VIAL SUBQ SCH ×5 (07:49→23:07)
[2022-04-06] MEDS: carvediloL 25 MG TABLET PO SCH ×2 (07:50→17:02)
[2022-04-06] MEDS: Gabapentin 300 MG CAPSULE PO SCH (07:50)
[2022-04-06] MEDS: Fluconazole 100 MG TABLET PO SCH (07:50)
[2022-04-06] MEDS: *HR* Enoxaparin 80 MG/0.8 ML SYRINGE SQ SCH ×2 (07:50→20:09)
[2022-04-06] MEDS: Ondansetron 4 MG/2 ML VIAL IVP PRN (10:35)
[2022-04-06 11:13] LABS: Hematocrit 35.9 % (35.3-44.9); Hemoglobin 10.8 g/dL (11.5-15.4); Mean Corpuscular HGB Conc 30.1 g/dL (31.6-35.5); Mean Corpuscular Hemoglobin 28.7 pg (28.0-33.3); Mean Corpuscular Volume 95.5 fL (83.0-100.0); Mean Platelet Volume 10.2 fL (9.4-12.4); Platelet Count 273 K/mcL (140-400); Red Blood Count 3.76 M/mcL (3.82-4.97); Red Cell Distribution Width 14.9 % (11.5-14.5); White Blood Count 11.1 K/mcL (4.3-11.1)
[2022-04-06 11:29] LABS: INR 1.7; Prothrombin Time 18.5 Seconds (9.4-12.1)
[2022-04-06 11:32] LABS: Calcium 9.3 mg/dL (8.6-10.3)
[2022-04-06] MEDS ORDERED: SODIUM ZIRCONIUM CYCLOSILICATE 5 GM POWD.PACK PO ONE (15:15)
[2022-04-06] MEDS ORDERED: 0.9 % Sodium Chloride 1,000 ML IVC SCH (15:15)
[2022-04-06] MEDS: *HR* OxyCODONE Immed Rel 5 MG TABLET PO PRN (17:16)
[2022-04-06] MEDS ORDERED: *HR* Warfarin 0.5 MG TABLET PO ONE (18:00)
[2022-04-06] MEDS: Gabapentin 100 MG CAPSULE PO SCH (20:09)
[2022-04-07] MEDS: *HR* OxyCODONE Immed Rel 5 MG TABLET PO PRN ×2 (00:41→21:09)
[2022-04-07] MEDS: Cefepime HCl 1,000 MG in 0.9 % Sodium Chloride 10 ML IVPB SCH ×2 (06:04→17:32)
[2022-04-07 07:01] LABS: Hemoglobin 9.6 g/dL (11.5-15.4); Mean Corpuscular Hemoglobin 28.7 pg (28.0-33.3); Mean Corpuscular Volume 95.8 fL (83.0-100.0); Mean Platelet Volume 10.6 fL (9.4-12.4); Platelet Count 212 K/mcL (140-400); Red Blood Count 3.34 M/mcL (3.82-4.97); Red Cell Distribution Width 15.2 % (11.5-14.5); White Blood Count 7.6 K/mcL (4.3-11.1)
[2022-04-07 07:04] LABS: INR 1.9; Prothrombin Time 21.5 Seconds (9.4-12.1)
[2022-04-07 07:16] LABS: Calcium 8.5 mg/dL (8.6-10.3); Potassium 4.7 mEq/L (3.5-5.1)
[2022-04-07] MEDS: Insulin LISPRO 300 UNITS/3 ML VIAL SUBQ SCH ×4 (08:09→21:05)
[2022-04-07] MEDS: Fluconazole 100 MG TABLET PO SCH (08:30)
[2022-04-07] MEDS: *HR* Enoxaparin 80 MG/0.8 ML SYRINGE SQ SCH ×2 (08:30→21:09)
[2022-04-07] MEDS: carvediloL 25 MG TABLET PO SCH ×2 (08:30→16:00)
[2022-04-07] MEDS: Gabapentin 100 MG CAPSULE PO SCH ×3 (10:31→21:09)
[2022-04-07] MEDS ORDERED: 0.9 % Sodium Chloride 1,000 ML IVC SCH (16:15)
[2022-04-07] MEDS ORDERED: *HR* Warfarin 0.5 MG TABLET PO ONE (18:00)
[2022-04-08] MEDS: Cefepime HCl 1,000 MG in 0.9 % Sodium Chloride 10 ML IVPB SCH ×2 (05:51→17:29)
[2022-04-08 06:23] LABS: Hematocrit 34.1 % (35.3-44.9); Hemoglobin 10.3 g/dL (11.5-15.4); Mean Corpuscular HGB Conc 30.2 g/dL (31.6-35.5); Mean Corpuscular Hemoglobin 28.9 pg (28.0-33.3); Mean Corpuscular Volume 95.5 fL (83.0-100.0); Mean Platelet Volume 10.2 fL (9.4-12.4); Platelet Count 242 K/mcL (140-400); Red Blood Count 3.57 M/mcL (3.82-4.97); Red Cell Distribution Width 15.2 % (11.5-14.5); White Blood Count 8.6 K/mcL (4.3-11.1)
[2022-04-08 06:28] LABS: INR 2.1; Prothrombin Time 23.8 Seconds (9.4-12.1)
[2022-04-08 07:10] LABS: Calcium 8.9 mg/dL (8.6-10.3); Potassium 4.4 mEq/L (3.5-5.1)
[2022-04-08] MEDS: Insulin LISPRO 300 UNITS/3 ML VIAL SUBQ SCH ×4 (07:55→20:35)
[2022-04-08] MEDS: carvediloL 25 MG TABLET PO SCH ×2 (08:56→17:29)
[2022-04-08] MEDS: Gabapentin 100 MG CAPSULE PO SCH ×3 (08:56→22:05)
[2022-04-08] MEDS: Fluconazole 100 MG TABLET PO SCH (08:57)
[2022-04-08] MEDS ORDERED: *HR* Warfarin 0.5 MG TABLET PO ONE (18:00)
[2022-04-08] MEDS: Ondansetron 4 MG/2 ML VIAL IVP PRN (20:38)
[2022-04-09] MEDS: Cefepime HCl 1,000 MG in 0.9 % Sodium Chloride 10 ML IVPB SCH ×2 (05:57→17:26)
[2022-04-09 06:37] LABS: Hematocrit 34.5 % (35.3-44.9); Hemoglobin 10.6 g/dL (11.5-15.4); Mean Corpuscular HGB Conc 30.7 g/dL (31.6-35.5); Mean Corpuscular Hemoglobin 28.9 pg (28.0-33.3); Mean Platelet Volume 10.8 fL (9.4-12.4); Platelet Count 242 K/mcL (140-400); Red Blood Count 3.67 M/mcL (3.82-4.97); Red Cell Distribution Width 15.1 % (11.5-14.5); White Blood Count 9.1 K/mcL (4.3-11.1)
[2022-04-09 06:42] LABS: INR 2.6; Prothrombin Time 29.1 Seconds (9.4-12.1)
[2022-04-09 06:54] LABS: Calcium 8.9 mg/dL (8.6-10.3)
[2022-04-09] MEDS: carvediloL 25 MG TABLET PO SCH ×2 (08:09→17:26)
[2022-04-09] MEDS: Gabapentin 100 MG CAPSULE PO SCH ×3 (08:10→20:38)
[2022-04-09] MEDS: Fluconazole 100 MG TABLET PO SCH (08:10)
[2022-04-09] MEDS: Insulin LISPRO 300 UNITS/3 ML VIAL SUBQ SCH ×4 (09:06→20:38)
[2022-04-09] MEDS ORDERED: *HR* Warfarin 0.5 MG TABLET PO ONE (18:00)
[2022-04-10 05:03] LABS: Hematocrit 34.1 % (35.3-44.9); Hemoglobin 10.5 g/dL (11.5-15.4); Mean Corpuscular HGB Conc 30.8 g/dL (31.6-35.5); Mean Corpuscular Hemoglobin 28.9 pg (28.0-33.3); Mean Corpuscular Volume 93.9 fL (83.0-100.0); Mean Platelet Volume 10.9 fL (9.4-12.4); Platelet Count 245 K/mcL (140-400); Red Blood Count 3.63 M/mcL (3.82-4.97); Red Cell Distribution Width 15.4 % (11.5-14.5); White Blood Count 11.1 K/mcL (4.3-11.1)
[2022-04-10 05:11] LABS: Prothrombin Time 33.3 Seconds (9.4-12.1)
[2022-04-10 05:21] LABS: Calcium 9.2 mg/dL (8.6-10.3); Potassium 4.2 mEq/L (3.5-5.1)
[2022-04-10] MEDS: Cefepime HCl 1,000 MG in 0.9 % Sodium Chloride 10 ML IVPB SCH (05:24)
[2022-04-10] MEDS: carvediloL 25 MG TABLET PO SCH ×2 (07:44→16:07)
[2022-04-10] MEDS: Fluconazole 100 MG TABLET PO SCH (07:44)
[2022-04-10] MEDS: *HR* OxyCODONE Immed Rel 5 MG TABLET PO PRN ×2 (07:44→16:10)
[2022-04-10] MEDS: Gabapentin 100 MG CAPSULE PO SCH ×3 (07:44→21:10)
[2022-04-10] MEDS: Insulin LISPRO 300 UNITS/3 ML VIAL SUBQ SCH ×4 (07:47→21:11)
[2022-04-10] MEDS ORDERED: *HR* Warfarin 0.5 MG TABLET PO ONE (18:00)
[2022-04-10] MEDS ORDERED: 0.9 % Sodium Chloride 1,000 ML IVC SCH (18:30)
[2022-04-11] MEDS: *HR* OxyCODONE Immed Rel 5 MG TABLET PO PRN ×2 (00:33→15:01)
[2022-04-11 01:55] LABS: Hematocrit 32.5 % (35.3-44.9); Hemoglobin 9.9 g/dL (11.5-15.4); Mean Corpuscular HGB Conc 30.5 g/dL (31.6-35.5); Mean Corpuscular Hemoglobin 28.8 pg (28.0-33.3); Mean Corpuscular Volume 94.5 fL (83.0-100.0); Mean Platelet Volume 10.6 fL (9.4-12.4); Platelet Count 207 K/mcL (140-400); Red Blood Count 3.44 M/mcL (3.82-4.97); Red Cell Distribution Width 15.4 % (11.5-14.5); White Blood Count 8.7 K/mcL (4.3-11.1)
[2022-04-11 02:02] LABS: INR 3.1; Prothrombin Time 33.9 Seconds (9.4-12.1)
[2022-04-11 02:14] LABS: Calcium 8.9 mg/dL (8.6-10.3); Potassium 3.9 mEq/L (3.5-5.1)
[2022-04-11] MEDS: Insulin LISPRO 300 UNITS/3 ML VIAL SUBQ SCH ×4 (07:44→19:39)
[2022-04-11] MEDS: Gabapentin 100 MG CAPSULE PO SCH ×3 (08:31→21:15)
[2022-04-11] MEDS: carvediloL 25 MG TABLET PO SCH ×2 (08:32→18:21)
[2022-04-11] MEDS: Fluconazole 100 MG TABLET PO SCH (08:32)
[2022-04-11 18:09] LABS: Bilirubin,Urine Negative (Negative); Blood,Urine Large (Negative); Clarity,Urine Turbid (Clear); Color,Urine Light-Orange (Yellow); Glucose,Urine (UA) Normal (Normal); Ketones,Urine 20 mg/dL (Negative); Leukocyte Esterase,Urine Large (Negative); Nitrite,Urine Negative (Negative); PH,Urine 6.5 pH Units (5.0-8.0); Protein,Urine >=600 mg/dL (Neg-Trace); Specific Gravity,Urine 1.019 (1.010-1.025); Urobilinogen,Urine Normal (Normal)
[2022-04-11 18:12] LABS: RBC,Urine TNTC per hpf (0-3); WBC,Urine TNTC per hpf (0-3)
[2022-04-11 18:13] LABS: Hyaline Casts,Urine None Seen per lpf (None Seen); Renal Epithelial Cells,Urine Few per hpf (None-Few); Squamous Epithelial Cell,Urine Moderate per hpf (None-Few)
[2022-04-11 18:14] LABS: Bacteria,Urine Few per hpf (None-Few); Budding Yeast,Urine Few per hpf (None Seen); Mucus,Urine Moderate per lpf (None-Few)
[2022-04-11 18:33] LABS: Creatinine,Urine 109 mg/dL; Microalbumin,Urine > 1350 mg/L
[2022-04-12 02:27] LABS: Hematocrit 31.5 % (35.3-44.9); Hemoglobin 9.7 g/dL (11.5-15.4); Mean Corpuscular HGB Conc 30.8 g/dL (31.6-35.5); Mean Platelet Volume 10.5 fL (9.4-12.4); Platelet Count 207 K/mcL (140-400); Red Blood Count 3.35 M/mcL (3.82-4.97); Red Cell Distribution Width 15.6 % (11.5-14.5); White Blood Count 8.8 K/mcL (4.3-11.1)
[2022-04-12 02:45] LABS: Calcium 8.9 mg/dL (8.6-10.3); Potassium 4.1 mEq/L (3.5-5.1)
[2022-04-12 02:54] LABS: Prothrombin Time 33.1 Seconds (9.4-12.1)
[2022-04-12] MEDS: *HR* OxyCODONE Immed Rel 5 MG TABLET PO PRN ×2 (06:35→20:18)
[2022-04-12] MEDS: Insulin LISPRO 300 UNITS/3 ML VIAL SUBQ SCH ×4 (08:23→19:58)
[2022-04-12] MEDS: Gabapentin 100 MG CAPSULE PO SCH ×3 (09:58→20:18)
[2022-04-12] MEDS: Fluconazole 100 MG TABLET PO SCH (09:58)
[2022-04-12] MEDS: carvediloL 25 MG TABLET PO SCH ×2 (10:00→17:37)
[2022-04-13 06:28] LABS: Hematocrit 33.4 % (35.3-44.9); Hemoglobin 10.3 g/dL (11.5-15.4); Mean Corpuscular HGB Conc 30.8 g/dL (31.6-35.5); Mean Corpuscular Hemoglobin 29.1 pg (28.0-33.3); Mean Corpuscular Volume 94.4 fL (83.0-100.0); Mean Platelet Volume 10.9 fL (9.4-12.4); Platelet Count 250 K/mcL (140-400); Red Blood Count 3.54 M/mcL (3.82-4.97); Red Cell Distribution Width 15.6 % (11.5-14.5); White Blood Count 9.6 K/mcL (4.3-11.1)
[2022-04-13 06:32] LABS: Prothrombin Time 32.8 Seconds (9.4-12.1)
[2022-04-13 06:49] LABS: Potassium 3.5 mEq/L (3.5-5.1)
[2022-04-13] MEDS: Gabapentin 100 MG CAPSULE PO SCH ×3 (08:04→21:36)
[2022-04-13] MEDS: Insulin LISPRO 300 UNITS/3 ML VIAL SUBQ SCH ×4 (08:05→21:23)
[2022-04-13] MEDS: carvediloL 25 MG TABLET PO SCH ×2 (08:05→17:31)
[2022-04-13] MEDS: Fluconazole 100 MG TABLET PO SCH (08:05)
[2022-04-13] MEDS: *HR* OxyCODONE Immed Rel 5 MG TABLET PO PRN ×2 (08:10→15:56)
[2022-04-13] MEDS: Ondansetron 4 MG/2 ML VIAL IVP PRN (11:50)
[2022-04-13] MEDS ORDERED: *HR* Warfarin 0.5 MG TABLET PO ONE (18:00)
[2022-04-14 06:13] LABS: INR 3.1; Prothrombin Time 34.4 Seconds (9.4-12.1)
[2022-04-14 06:58] LABS: Calcium 9.1 mg/dL (8.6-10.3); Potassium 4.7 mEq/L (3.5-5.1)
[2022-04-14] MEDS: Insulin LISPRO 300 UNITS/3 ML VIAL SUBQ SCH ×4 (07:42→20:15)
[2022-04-14] MEDS: Gabapentin 100 MG CAPSULE PO SCH ×3 (09:42→20:16)
[2022-04-14] MEDS: Fluconazole 100 MG TABLET PO SCH (09:42)
[2022-04-14] MEDS: carvediloL 25 MG TABLET PO SCH ×2 (09:43→16:16)
[2022-04-14] MEDS ORDERED: 0.9 % Sodium Chloride 1,000 ML IVC SCH (10:00)
[2022-04-14] MEDS: Mirtazapine 15 MG TABLET PO SCH (20:16)
[2022-04-15 03:33] LABS: INR 3.7; Prothrombin Time 40.8 Seconds (9.4-12.1)
[2022-04-15 03:49] LABS: Calcium 8.8 mg/dL (8.6-10.3); Potassium 4.1 mEq/L (3.5-5.1)
[2022-04-15] MEDS: *HR* OxyCODONE Immed Rel 5 MG TABLET PO PRN (05:48)
[2022-04-15] MEDS: Insulin LISPRO 300 UNITS/3 ML VIAL SUBQ SCH ×4 (07:44→21:39)
[2022-04-15] MEDS: carvediloL 25 MG TABLET PO SCH ×2 (07:51→16:32)
[2022-04-15] MEDS: Fluconazole 100 MG TABLET PO SCH (07:51)
[2022-04-15] MEDS: Gabapentin 100 MG CAPSULE PO SCH (07:51)
[2022-04-15] MEDS: Multivit/Ca/Min/Fe/FA 1 TAB TABLET PO SCH (10:02)
[2022-04-15] MEDS ORDERED: 0.9 % Sodium Chloride 1,000 ML IVC ONE (14:24)
[2022-04-15 16:47] LABS: Hematocrit 31.5 % (35.3-44.9); Hemoglobin 9.8 g/dL (11.5-15.4); Mean Corpuscular HGB Conc 31.1 g/dL (31.6-35.5); Mean Corpuscular Hemoglobin 29.2 pg (28.0-33.3); Mean Corpuscular Volume 93.8 fL (83.0-100.0); Mean Platelet Volume 10.4 fL (9.4-12.4); Platelet Count 227 K/mcL (140-400); Red Blood Count 3.36 M/mcL (3.82-4.97); Red Cell Distribution Width 15.8 % (11.5-14.5); White Blood Count 8.3 K/mcL (4.3-11.1)
[2022-04-15] MEDS: Mirtazapine 15 MG TABLET PO SCH (19:38)
[2022-04-16 07:13] VITALS: O2SAT 99
[2022-04-16] MEDS: Insulin LISPRO 300 UNITS/3 ML VIAL SUBQ SCH ×4 (07:28→21:34)
[2022-04-16] MEDS: *HR* OxyCODONE Immed Rel 5 MG TABLET PO PRN ×2 (07:45→21:32)
[2022-04-16] MEDS: Multivit/Ca/Min/Fe/FA 1 TAB TABLET PO SCH (07:45)
[2022-04-16] MEDS: carvediloL 25 MG TABLET PO SCH ×2 (07:46→16:23)
[2022-04-16] MEDS: Fluconazole 100 MG TABLET PO SCH (07:47)
[2022-04-16 09:21] LABS: Calcium 8.6 mg/dL (8.6-10.3); Potassium 4.2 mEq/L (3.5-5.1)
[2022-04-16 09:26] LABS: INR 2.8; Prothrombin Time 31.2 Seconds (9.4-12.1)
[2022-04-16 11:26] VITALS: PULSE 82
[2022-04-16] MEDS ORDERED: predniSONE 20 MG TABLET PO SCH (15:15)
[2022-04-16 16:11] LABS: Bacteria,Urine Few per hpf (None-Few); Bilirubin,Urine Negative (Negative); Blood,Urine Large (Negative); Clarity,Urine Ex.Turbid (Clear); Color,Urine Yellow (Yellow); Glucose,Urine (UA) Normal (Normal); Ketones,Urine 10 mg/dL (Negative); Leukocyte Esterase,Urine Large (Negative); Mucus,Urine Many per lpf (None-Few); Nitrite,Urine Positive (Negative); Protein,Urine 200 mg/dL (Neg-Trace); RBC,Urine TNTC per hpf (0-3); Specific Gravity,Urine 1.014 (1.010-1.025); Urobilinogen,Urine Normal (Normal); WBC,Urine TNTC per hpf (0-3)
[2022-04-16 16:37] LABS: Influenza A PCR Negative (Negative); Influenza B PCR Negative (Negative); Resp. Syncytial Virus PCR Negative (Negative)
[2022-04-16 16:38] VITALS: BP 95/75
[2022-04-16 16:38] LABS: SARS-CoV-2 by PCR (In House) Negative (Negative)
[2022-04-16 16:46] VITALS: TEMP 97.6
[2022-04-16] MEDS ORDERED: *HR* Warfarin 0.5 MG TABLET PO ONE (18:00)
[2022-04-16] MEDS: Mirtazapine 15 MG TABLET PO SCH (21:30)
== END 2022-04-16 22:06 | DRG 466 ==
LOC: 2NENU → SUATTDRO 07:32
PROVIDERS: ADMIT Internal Medicine; ATTEND Internal Medicine

== ENCOUNTER 2022-05-02 11:59 | Inpatient (IN) ==
[2022-05-02] MEDS ORDERED: Naloxone 0.4 MG/ML INJ IVP PRN (14:36)
[2022-05-02] MEDS ORDERED: Ondansetron ODT 4 MG TAB.RAPDIS SL PRN (14:36)
[2022-05-02] MEDS ORDERED: Melatonin 3 MG TABLET PO PRN (14:36)
[2022-05-02] MEDS ORDERED: Dextrose Gel 15 GM/37.5 ML TUBE PO PRN ×2 (15:25)
[2022-05-02] MEDS ORDERED: *HR* Dextrose 50 % in Water (Syg) 50 ML SYRINGE IVP PRN (15:25)
[2022-05-02] MEDS ORDERED: D5% in Water 1,000 ML IVC PRN (15:25)
[2022-05-02] MEDS: 0.9 % Sodium Chloride 1,000 ML IVC SCH ×2 (15:48→16:54)
[2022-05-02] MEDS: Cefepime HCl 1,000 MG in 0.9 % Sodium Chloride 10 ML IVP SCH (16:57)
[2022-05-02] MEDS: Insulin LISPRO 300 UNITS/3 ML VIAL SUBQ SCH (17:06)
[2022-05-02] MEDS: Acetaminophen 325 MG TABLET PO PRN (17:07)
[2022-05-02] MEDS: *HR* Heparin 5,000 UNIT/ML VIAL SQ SCH (21:19)
[2022-05-02] MEDS ORDERED: 0.9 % Sodium Chloride 1,000 ML IVC ONE (22:25)
[2022-05-02] MEDS ORDERED: 0.9 % Sodium Chloride 1,000 ML IVC SCH (23:30)
[2022-05-03 01:53] LABS: Eosinophils % 0.7 %
[2022-05-03 01:55] LABS: Basophils % 0.2 %; Eosinophils # 0.1 K/mcL (0.0-0.6); Hematocrit 23.2 % (35.3-44.9); Hemoglobin 6.7 g/dL (11.5-15.4); Immature Granulocytes % 0.7 % (0-4); Lymphocytes # 1.2 K/mcL (0.6-4.6); Lymphocytes % 13.9 %; Mean Corpuscular HGB Conc 28.9 g/dL (31.6-35.5); Mean Corpuscular Hemoglobin 28.9 pg (28.0-33.3); Mean Platelet Volume 9.3 fL (9.4-12.4); Monocytes # 0.4 K/mcL (0.0-1.3); Monocytes % 4.9 %; Neutrophils # 6.8 K/mcL (1.6-8.9); Platelet Count 229 K/mcL (140-400); Red Blood Count 2.32 M/mcL (3.82-4.97); Red Cell Distribution Width 16.7 % (11.5-14.5); Segmented Neutrophils % 79.6 %; White Blood Count 8.5 K/mcL (4.3-11.1)
[2022-05-03 02:02] LABS: INR 2.1; Prothrombin Time 23.6 Seconds (9.4-12.1)
[2022-05-03 02:14] LABS: Calcium 6.9 mg/dL (8.6-10.3); Magnesium 1.4 mg/dL (1.6-2.6); Phosphorous 4.1 mg/dL (2.7-4.5); Potassium 4.8 mEq/L (3.5-5.1)
[2022-05-03 02:49] LABS: Platelet Estimate Normal (Normal)
[2022-05-03 02:50] LABS: Hypochromasia Present (Not Present)
[2022-05-03] MEDS: *HR* Heparin 5,000 UNIT/ML VIAL SQ SCH ×2 (05:07→13:27)
[2022-05-03] MEDS: Cefepime HCl 1,000 MG in 0.9 % Sodium Chloride 10 ML IVP SCH (05:08)
[2022-05-03] MEDS: Insulin LISPRO 300 UNITS/3 ML VIAL SUBQ SCH ×2 (07:48→12:22)
[2022-05-03] MEDS: Acetaminophen 325 MG TABLET PO PRN ×2 (08:07→13:36)
[2022-05-03] MEDS ORDERED: Calcium Gluconate 1gm/50mL 1 GM/50 ML BAG IVPB ONE (12:48)
[2022-05-03] MEDS ORDERED: Magnesium Sulfate 1 GM/102 ML PIGGYBACK IVPB ONE (12:48)
[2022-05-03 13:37] LABS: Hemoglobin 7.1 g/dL (11.5-15.4)
[2022-05-03] MEDS ORDERED: Cefepime HCl 1,000 MG in 0.9 % Sodium Chloride 10 ML IVP SCH (15:15)
[2022-05-03] MEDS ORDERED: Chlorhexidine Rinse 15 ML MOUTHWASH MM SCH (21:00)
[2022-05-03] MEDS: *HR* HYDROcodone/Acet 10/325 mg TABLET PO PRN (22:02)
[2022-05-04 06:07] LABS: Basophils % 0.3 %; Eosinophils # 0.1 K/mcL (0.0-0.6); Eosinophils % 0.9 %; Hematocrit 25.3 % (35.3-44.9); Hemoglobin 7.3 g/dL (11.5-15.4); Immature Granulocytes % 0.7 % (0-4); Lymphocytes % 13.8 %; Mean Corpuscular HGB Conc 28.9 g/dL (31.6-35.5); Mean Corpuscular Hemoglobin 28.7 pg (28.0-33.3); Mean Corpuscular Volume 99.6 fL (83.0-100.0); Monocytes # 0.3 K/mcL (0.0-1.3); Monocytes % 4.9 %; Neutrophils # 5.5 K/mcL (1.6-8.9); Platelet Count 232 K/mcL (140-400); Red Blood Count 2.54 M/mcL (3.82-4.97); Red Cell Distribution Width 16.9 % (11.5-14.5); Segmented Neutrophils % 79.4 %; White Blood Count 6.9 K/mcL (4.3-11.1)
[2022-05-04] MEDS: *HR* HYDROcodone/Acet 10/325 mg TABLET PO PRN ×2 (06:19→16:10)
[2022-05-04 06:23] LABS: Anisocytosis 1+ (Not Present); Hypochromasia Present (Not Present)
[2022-05-04 06:24] LABS: Platelet Estimate Normal (Normal)
[2022-05-04 06:33] LABS: Calcium 7.8 mg/dL (8.6-10.3); Magnesium 1.7 mg/dL (1.6-2.6); Phosphorous 3.3 mg/dL (2.7-4.5); Potassium 4.5 mEq/L (3.5-5.1)
[2022-05-04] MEDS ORDERED: Hyoscyamine SL 0.125 MG TAB.SUBL SL PRN (13:43)
[2022-05-04] MEDS ORDERED: Sennosides/Docusate Sodium TABLET PO PRN (13:44)
[2022-05-05] MEDS: *HR* HYDROcodone/Acet 10/325 mg TABLET PO PRN (06:45)
[2022-05-05] MEDS ORDERED: Haloperidol Oral Conc 10 MG/5 ML UDC PO PRN (12:17)
[2022-05-07] MEDS ORDERED: Bisacodyl 10 MG RECTAL SUPPOSITORY RC PRN (10:41)
[2022-05-09 09:53] VITALS: TEMP 101.2
[2022-05-09] MEDS: Acetaminophen 325 MG TABLET PO PRN (09:56)
[2022-05-09 10:09] VITALS: O2SAT 97
[2022-05-09] MEDS ORDERED: Acetaminophen 650 MG RECTAL SUPP RC PRN (10:59)
[2022-05-09 20:26] VITALS: BP 104/58; PULSE 90
[2022-05-10] MEDS ORDERED: *HR* HYDROmorphone (PF) 1 MG/ML SYRINGE IVP PRN (14:19)
[2022-05-10] MEDS ORDERED: *HR* HYDROmorphone 2 MG/ML SYRINGE IVP PRN (14:22)
[2022-05-10] MEDS ORDERED: Glycopyrrolate 0.2 MG/ML VIAL IVP PRN (14:26)
== END 2022-05-11 13:22 | disposition hospice, inpatient (51) | DRG 466 ==
LOC: 2NENU → SUATTDRO 05-03 14:30
PROVIDERS: ADMIT Internal Medicine; ATTEND Internal Medicine

== ENCOUNTER 2022-05-11 11:25 | Inpatient (IN) ==
[2022-05-11] MEDS ORDERED: Hyoscyamine SL 0.125 MG TAB.SUBL SL PRN (11:50)
[2022-05-11] MEDS ORDERED: Haloperidol Oral Conc 10 MG/5 ML UDC PO PRN (12:00)
[2022-05-11] MEDS ORDERED: Haloperidol Lactate 5 MG/ML VIAL IVP PRN (12:00)
[2022-05-11] MEDS ORDERED: *HR* HYDROmorphone (PF) 1 MG/ML SYRINGE IVP PRN (12:03)
[2022-05-11] MEDS ORDERED: Ondansetron 4 MG/2 ML VIAL IVP PRN (12:05)
[2022-05-11] MEDS ORDERED: Acetaminophen 650 MG RECTAL SUPP RC PRN (12:07)
[2022-05-11 16:28] VITALS: O2SAT 100
[2022-05-12] MEDS: *HR* HYDROmorphone 2 MG/ML SYRINGE IVP PRN ×2 (09:57→23:30)
[2022-05-13] MEDS ORDERED: Bisacodyl 10 MG RECTAL SUPPOSITORY RC PRN (13:08)
[2022-05-13] MEDS: Glycopyrrolate 0.2 MG/ML VIAL IVP PRN (14:33)
[2022-05-14 16:29] VITALS: BP 73/44; PULSE 84; TEMP 98.9
[2022-05-15] MEDS: Glycopyrrolate 0.2 MG/ML VIAL IVP PRN (23:42)
== END 2022-05-16 13:45 | disposition expired | DRG 951 ==
LOC: 2NENU 13:24
PROVIDERS: ADMIT Internal Medicine Hospice and Palliative Medicine; ATTEND Internal Medicine Hospice and Palliative Medicine